=== PATIENT | female | born 2005 | race Caucasian/White ===

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

== ENCOUNTER → 2023-07-10 | Outpatient (REF) | payer OTHER ==
[~2023-07-10] MED LIST: AZO-95TA3 PO; CEFP200T PO
== END ==
LOC: M LAB REF 11:44
PROVIDERS: ATTEND Student in an Organized Health Care Education/Training Program
DX: J02.9 Acute pharyngitis, unspecified (principal)